=== PATIENT | female | born 1980 | race American Indian/Alaskan Native ===

== ENCOUNTER 2019-01-23 00:39 | Emergency (ER) | payer MEDICAID ==
[2019-01-23 01:41] LABS: Basophils % (Auto) 0.4 % (0.0-1.8); Eosinophils # (Auto) 0.3 K/mm3 (0.0-0.4); Eosinophils % (Auto) 7.2 % (0.0-4.3); Hematocrit 26.6 % (30.3-42.9); Hemoglobin 8.6 gm/dl (10.1-14.3); Lymphocytes % (Auto) 41.8 % (13.4-35.0); Mean Corpuscular HGB Conc 32 % (30-34); Mean Corpuscular Volume 78 fl (79-97); Monocytes # (Auto) 0.3 K/mm3 (0.0-0.8); Platelet Count 331 K/mm3 (140-440); Red Cell Distribution Width 16.6 % (13.2-15.2)
[2019-01-23 01:54] LABS: BUN/Creatinine Ratio 14; Blood Urea Nitrogen 13 mg/dL (7-17); Calcium 9.4 mg/dL (8.4-10.2); Hemolysis Index 3
[2019-01-23 04:01] LABS: Bacteria,Urine 1+ /HPF (Negative); Bilirubin,Urine NEG (Negative); Blood,Urine LG (Negative); Color,Urine Yellow (Yellow); Mucus,Urine FEW /HPF; Protein,Urine <15 mg/dL mg/dL (Negative); Urobilinogen,Urine < 2.0 mg/dL (<2.0)
[2019-01-23 04:06] LABS: HCG Qualitative,Urine Negative (Negative)
--- NOTE | 2019-01-23 04:31 | Emergency Department Report ---
ED General Adult HPI - General Chief complaint: Weakness Stated complaint: HEADACHES, FATIGUE, LIGHT HEADED Time Seen by Provider: 01/23/19 03:39 Source: patient Mode of arrival: Ambulatory Limitations: No Limitations - History of Present Illness Initial comments: Patient is a 38-year-old -[place] female with a history of chronic iron deficiency anemia and is supposed be taking iron tablets at home but is noncompliant, and presents to the ED with complaint of acute onset persistent generalized fatigue and weakness, headache and nausea for the last 1 week. Patient admits that she has not been taking her iron tablets because "they make me nauseous and constipated" for over 2 months now. Patient denies syncope, chest pain, shortness of breath, abdominal pain, nausea, vomiting, diarrhea, change in vision, palpitations, fever or chills and dizziness. MD Complaint: Generalized fatigue, headache -: Gradual, week(s) (1) Location: head Radiation: non-radiation Severity scale (0 -10): 4 Quality: dull Consistency: constant Improves with: none Worsens with: none Associated Symptoms: denies other symptoms, headaches, malaise, weakness. denies: confusion, chest pain, cough, diaphoresis, fever/chills, loss of appetite, nausea/vomiting, rash, seizure, shortness of breath, syncope Treatments Prior to Arrival: none - Related Data Allergies Allergy/AdvReac Type Severity Reaction Status Date / Time Sulfa (Sulfonamide Allergy Hives Verified 01/23/19 00:45 Antibiotics) sulfamethoxazole Allergy Hives Verified 01/23/19 00:45 [From Bactrim] trimethoprim [From Bactrim] Allergy Hives Verified 01/23/19 00:45 ED Review of Systems ROS: Stated complaint: HEADACHES, FATIGUE, LIGHT HEADED Other details as noted in HPI Constitutional: malaise, weakness. denies: chills, fever Eyes: denies: eye pain, eye discharge, vision change ENT: denies: ear pain, throat pain Respiratory: denies: cough, shortness of breath, wheezing Cardiovascular: denies: chest pain, palpitations Endocrine: no symptoms reported Gastrointestinal: denies: abdominal pain, nausea, diarrhea Genitourinary: denies: urgency, dysuria, discharge Musculoskeletal: denies: back pain, joint swelling, arthralgia Skin: denies: rash, lesions Neurological: headache. denies: weakness, paresthesias Psychiatric: denies: anxiety, depression Hematological/Lymphatic: denies: easy bleeding, easy bruising ED Past Medical Hx - Past Medical History Previous Medical History?: No - Surgical History Past Surgical History?: Yes Additional Surgical History: C-sections X 3. - Social History Smoking Status: Never Smoker Substance Use Type: None ED Physical Exam - General Limitations: No Limitations General appearance: alert, in no apparent distress - Head Head exam: Present: atraumatic, normocephalic, normal inspection - Eye Eye exam: Present: normal appearance, PERRL, EOMI - ENT ENT exam: Present: normal exam, normal orophraynx, mucous membranes moist, TM's normal bilaterally, normal external ear exam - Neck Neck exam: Present: normal inspection, full ROM - Respiratory Respiratory exam: Present: normal lung sounds bilaterally. Absent: respiratory distress, wheezes, rales, rhonchi, chest wall tenderness, accessory muscle use, prolonged expiratory - Cardiovascular Cardiovascular Exam: Present: regular rate, normal rhythm, normal heart sounds. Absent: systolic murmur, diastolic murmur, rubs, gallop - GI/Abdominal GI/Abdominal exam: Present: soft, normal bowel sounds. Absent: distended, tenderness, rebound, hyperactive bowel sounds, hypoactive bowel sounds, organomegaly - Rectal Rectal exam: Present: deferred - Extremities Exam Extremities exam: Present: normal inspection, full ROM, normal capillary refill - Back Exam Back exam: Present: normal inspection, full ROM. Absent: tenderness, CVA tenderness (R), CVA tenderness (L), muscle spasm - Neurological Exam Neurological exam: Present: alert, oriented X3, CN II-XII intact, normal gait, reflexes normal - Psychiatric Psychiatric exam: Present: normal affect, normal mood - Skin Skin exam: Present: warm, dry, intact, normal color. Absent: rash ED Course Vital Signs 01/23/19 00:48 Temperature 97.6 F Pulse Rate 80 Respiratory 16 Rate Blood Pressure 118/83 [Right] O2 Sat by Pulse 100 Oximetry - Reevaluation(s) Reevaluation #1: 01/23/19 04:43 This is a 38-year-old -[place] female with a history of chronic iron deficiency anemia who presented to the ED with generalized fatigue and weakness with a headache. In the ED the patient is alert and oriented 3 and is not in distress with normal vital signs. Labs were drawn and patient was treated for headache. On reevaluation, patient's headache is well controlled and lab test results show H&H of 8.6 and 26.6 respectively with MCV of 78. That is lab test results including urinalysis is unremarkable. Patient admitted to having the iron tablets at home but does not take them. Patient is encouraged and advised to take her iron tablets to help boost and improve her chronic iron deficiency anemia. Patient was discharged home and advised to follow-up with primary care physician in 7-10 days for reevaluation or return to the ED immediately if s ymptoms get worse. ED Medical Decision Making - Lab Data Result diagrams: 01/23/19 01:16 01/23/19 01:15 - Medical Decision Making This is a 38-year-old -[place] female with a history of chronic iron deficiency anemia who presented to the ED with generalized fatigue and weakness with a headache. In the ED the patient is alert and oriented 3 and is not in distress with normal vital signs. Labs were drawn and patient was treated for headache. On reevaluation, patient's headache is well controlled and lab test results show H&H of 8.6 and 26.6 respectively with MCV of 78. That is lab test results including urinalysis is unremarkable. Patient admitted to having the iron tablets at home but does not take them. Patient is encouraged and advised to take her iron tablets to help boost and improve her chronic iron deficiency anemia. Patient was discharged home and advised to follow-up with primary care physician in 7-10 days for reevaluation or return to the ED immediately if symptoms get worse. - Differential Diagnosis chronic anemia, generalized weakness, headache Critical care attestation.: If time is entered above; I have spent that time in minutes in the direct care of this critically ill patient, excluding procedure time. ED Disposition Clinical Impression: Generalized weakness, Chronic iron deficiency anemia Disposition: DC-01 TO HOME OR SELFCARE Is pt being admited?: No Does the pt Need Aspirin: No Condition: Stable Instructions: Iron Deficiency Anemia (ED), Weakness (ED), Fatigue (ED) Additional Instructions: TAKE YOUR REGULAR MEDICATIONS FOR ANEMIA WITH STOOL SOFTENERS, FOLLOW UP WITH YOUR PRIMARY CARE PHYSICIAN IN 7-10 DAYS FOR REEVALUATION. RETURN TO THE ED IMMEDIATELY IF SYMPTOMS GET WORSE Referrals: RONNIE HERNANDEZL, MD [Primary Care Provider] - 3-5 Days Time of Disposition: 04:28 Print Language: COL[place]
[2019-01-23 05:58] VITALS: BP 106/68
== END 2019-01-23 05:15 | disposition home or self-care (01) ==
LOC: ED 00:39
DX: D50.9 Iron deficiency anemia, unspecified (principal); Z88.2 Allergy status to sulfonamides; Z98.890 Other specified postprocedural states
CPT/HCPCS: 36415; 80048; 81001; 81025; 85025; 99283